=== PATIENT | female | born 1950 | race African-American/Black ===

== ENCOUNTER 2018-03-28 09:08 | Outpatient (CLI) | payer MEDICARE, MEDICAID | END 2018-03-28 09:09 | disposition home or self-care (01) | LOC: BICMAMMO 09:08 | PROVIDERS: ATTEND Nurse Practitioner Family | DX: Z78.0 Asymptomatic menopausal state (principal) | CPT/HCPCS: 77080 ==

== ENCOUNTER 2018-07-16 08:51 | Outpatient (CLI) | payer MEDICARE, MEDICAID ==
--- NOTE | 2018-07-16 11:10 | CT ---
CT OF THE ABDOMEN AND PELVIS WITH IV CONTRAST: DATE: 07/16/18. PROVIDED CLINICAL HISTORY: Abdominal pain. FINDINGS: Comparison is made with the examination performed 05/28/15. Large hiatal hernia is redemonstrated, inc ompletely visualized. The visualized lung bases are free of significant opacity. The liver, spleen, pancreas, and kidneys demonstrate an unremarkable CT appearance. There is a stabl e approximately 2.6 cm right adrenal mass presumably reflecting a lipid-poor adenoma. The left adren al gland appears normal. There is no bowel dilatation, inflammatory fat stranding, free fluid, or lymph node enlargement appar ent. Vascular calcifications are seen. The osseous structures demonstrate no concerning osteoblastic or osteolytic lesions. Lower lumbar sp ine degenerative changes are again noted. IMPRESSION: 1. Large hiatal hernia. 2. Other chronic findings as above. POS: [facility]
[2018-07-16] MEDS ORDERED: ISOVUE-370 76%-LOCM 1 ML ONE (14:04)
== END 2018-07-16 08:52 | disposition home or self-care (01) ==
LOC: BICCT 08:51
PROVIDERS: ATTEND Nurse Practitioner Family
DX: K44.9 Diaphragmatic hernia without obstruction or gangrene (principal); K58.9 Irritable bowel syndrome, unspecified; K31.84 Gastroparesis; M47.896 Other spondylosis, lumbar region; I70.0 Atherosclerosis of aorta
CPT/HCPCS: 74177

== ENCOUNTER 2018-08-07 12:40 | Outpatient (CLI) | payer MEDICARE, MEDICAID | END 2018-08-07 12:41 | disposition home or self-care (01) | LOC: BICMAMMO 12:40 | PROVIDERS: ATTEND Nurse Practitioner Family | DX: Z12.31 Encounter for screening mammogram for malignant neoplasm of breast (principal) | CPT/HCPCS: 77063; 77067 ==

== ENCOUNTER 2019-04-24 08:07 | Outpatient (CLI) | payer MEDICARE, MEDICAID ==
--- NOTE | 2019-04-24 10:16 | RAD ---
Barium swallow/esophagus: HISTORY: GERD without esophagitis, dysphasia FINDINGS: Normal swallowing function. Small thin incomplete mucosal web at the level of the cervical esophagus without evidence for obstruction or reduction in the flow of contrast. Patient swallowed barium tablet which passed into the stomach without difficulty. There is a large sliding-type hiatal hernia. One episode of minimal gastroesophageal reflux demonstra rojas. IMPRESSION: Large sliding-type hiatal hernia. One episode of mild gastroesophageal reflux.
== END 2019-04-24 08:08 | disposition home or self-care (01) ==
LOC: RAD 08:07
PROVIDERS: ATTEND Physician Assistant Medical
DX: K21.9 Gastro-esophageal reflux disease without esophagitis (principal); R13.10 Dysphagia, unspecified; K44.9 Diaphragmatic hernia without obstruction or gangrene
CPT/HCPCS: 74220

== ENCOUNTER → 2019-05-26 | Day surgery (SDC) | payer MEDICARE, MEDICAID | LOC: ENDO/OP 07:35 | PROVIDERS: ATTEND Internal Medicine Gastroenterology | DX: R13.10 Dysphagia, unspecified (principal); R63.4 Abnormal weight loss; Z79.84 Long term (current) use of oral hypoglycemic drugs; Z79.899 Other long term (current) drug therapy; Z88.8 Allergy status to other drugs, medicaments and biological substances | CPT/HCPCS: 91010 ==

== ENCOUNTER 2019-07-23 07:00 | Outpatient (CLI) | payer MEDICARE, MEDICAID ==
--- NOTE | 2019-07-23 13:19 | NM ---
EXAM: NM Gastric Empty Scan W/Meal PROVIDED CLINICAL HISTORY: Gastroparesis. COMPARISON: 07/14/2015. FINDINGS: Sequential left anterior oblique images of the abdomen are obtained. Emptying at 30 minutes is 74.2%. Emptying at 1 hour is 77.2%. Emptying at 2 hours is 78.6%. Emptying at 3 hours is 87.3% Emptying at 4 hours is 90.6%. IMPRESSION: Normal gastric emptying. There was evidence of delayed gastric emptying on prior exam.
== END 2019-07-23 07:01 | disposition home or self-care (01) ==
LOC: NM 07:00
PROVIDERS: ATTEND Internal Medicine Gastroenterology
DX: K31.84 Gastroparesis (principal); K21.9 Gastro-esophageal reflux disease without esophagitis; R93.3 Abnormal findings on diagnostic imaging of other parts of digestive tract
CPT/HCPCS: 78264; A9541

== ENCOUNTER 2019-08-20 15:33 | Emergency (ER) | payer MEDICARE, MEDICAID | END 2019-08-20 16:22 | disposition home or self-care (01) | LOC: ERS 15:33 | DX: E11.65 Type 2 diabetes mellitus with hyperglycemia (principal); E03.9 Hypothyroidism, unspecified; E78.5 Hyperlipidemia, unspecified; E78.00 Pure hypercholesterolemia, unspecified; I10 Essential (primary) hypertension; Z79.84 Long term (current) use of oral hypoglycemic drugs; Z79.899 Other long term (current) drug therapy | CPT/HCPCS: 36416; 99284 ==

== ENCOUNTER 2019-08-21 14:48 | Outpatient (CLI) | payer MEDICARE, OTHER ==
--- NOTE | 2019-08-21 15:49 | MMO ---
Bilateral MAMMO Bilat Screen [facility]. CLINICAL HISTORY: Patient is 69 years old and is seen for screening. The patient has no family history of breast cancer. The patient has no personal history of cancer. VIEWS: The views performed were: bilateral craniocaudal with tomosynthesis and bilateral mediolateral oblique with tomosynthesis. FILMS COMPARED: The present examination has been compared to prior imaging studies performed at [facility] on 07/26/2015, 07/30/2016, 08/06/2017 and 08/07/2018. This study has been interpreted with the assistance of computer-aided detection. MAMMOGRAM FINDINGS: There are scattered fibroglandular densities. Benign calcifications are noted bilaterally. There are no suspicious masses, suspicious calcifications, or new areas of architectural distortion. IMPRESSION: THERE IS NO MAMMOGRAPHIC EVIDENCE OF MALIGNANCY. A ROUTINE FOLLOW-UP MAMMOGRAM IN 1 YEAR IS RECOMMENDED. THE RESULTS OF THIS EXAM WERE SENT TO THE PATIENT. ACR BI-RADS Category 2 - Benign finding MAMMOGRAPHY NOTE: 1. A negative mammogram report should not delay a biopsy if a dominant of clinically suspicious mass is present. 2. Approximately 10% to 15% of breast cancers are not detected by mammography. 3. Adenosis and dense breasts may obscure an underlying neoplasm. Reported by: DEYANIRA PONCE MD Electonically Signed: [id number]
== END 2019-08-21 14:49 | disposition home or self-care (01) ==
LOC: BICMAMMO 14:48
PROVIDERS: ATTEND Nurse Practitioner Family
DX: Z12.31 Encounter for screening mammogram for malignant neoplasm of breast (principal)
CPT/HCPCS: 77063; 77067

== ENCOUNTER 2020-08-24 14:43 | Outpatient (CLI) | payer MEDICARE, OTHER ==
--- NOTE | 2020-08-24 15:54 | MMO ---
Bilateral MAMMO Bilat Screen [facility]. CLINICAL HISTORY: Patient is 70 years old and is seen for screening. The patient has no family history of breast cancer. The patient has no personal history of cancer. VIEWS: The views performed were: bilateral craniocaudal with tomosynthesis and bilateral mediolateral oblique with tomosynthesis. FILMS COMPARED: The present examination has been compared to prior imaging studies performed at [facility] on 07/30/2016, 08/06/2017, 08/07/2018 and 08/21/2019. This study has been interpreted with the assistance of computer-aided detection. MAMMOGRAM FINDINGS: There are scattered fibroglandular densities. There are vascular calcifications seen in both breasts. There are no suspicious masses, suspicious calcifications, or new areas of architectural distortion. IMPRESSION: A ROUTINE FOLLOW-UP MAMMOGRAM IN 1 YEAR IS RECOMMENDED. THE RESULTS OF THIS EXAM WERE SENT TO THE PATIENT. ACR BI-RADS Category 2 - Benign finding MAMMOGRAPHY NOTE: 1. A negative mammogram report should not delay a biopsy if a dominant of clinically suspicious mass is present. 2. Approximately 10% to 15% of breast cancers are not detected by mammography. 3. Adenosis and dense breasts may obscure an underlying neoplasm. Reported by: NATHALIE MORGAN MD Electonically Signed: [id number]
== END 2020-08-24 14:44 | disposition home or self-care (01) ==
LOC: BICMAMMO 14:43
PROVIDERS: ATTEND Nurse Practitioner Family
DX: Z12.31 Encounter for screening mammogram for malignant neoplasm of breast (principal)
CPT/HCPCS: 77063; 77067

== ENCOUNTER 2020-10-10 16:17 | Emergency (ER) | payer MEDICARE, OTHER ==
[2020-10-10 17:18] LABS: #Lymphocytes 1.3 thou/uL (1.20-3.40); #Monocytes 0.4 thou/uL (0.11-0.59); #Neutrophils 4.4 thou/uL (1.40-6.50); %Eosinophils 0.2 % (0.0-10.0); %Lymphocytes 21.4 % (21.0-51.0); %Monocytes 6.7 % (0.0-10.0); %Neutrophils 71.6 % (42.0-75.0); Mean Corpuscular HGB CONC 32.7 g/dL (32.0-36.0); Mean Corpuscular Hemoglobin 27.3 pg (27.0-31.0); Mean Corpuscular Volume 83.7 fL (78.0-98.0); Mean Platelet Volume 6.3 fL (7.4-10.4); Platelet Count 453 thou/uL (130-400); RBC Distribution Width 11.8 % (11.5-14.5); Red Blood Cell (RBC) Count 4.38 mill/uL (4.20-5.40); White Blood Cell (WBC) Count 6.2 thou/uL (4.8-10.8)
[2020-10-10 17:39] LABS: ALT (SGPT) 23 U/L (8-55); AST (SGOT) 33 U/L (5-34); Albumin 4.1 g/dL (3.4-4.8); Alkaline Phosphatase 115 U/L (40-110); Anion Gap 19 mmol/L (10-20); BUN (Urea Nitrogen) 23 mg/dL (9.8-20.1); Bilirubin, Total 0.7 mg/dL (0.2-1.2); Calc. Creatinine Clearance 0 mL/min (70-130); Carbon Dioxide 25 mmol/L (23-31); Chloride 97 mmol/L (98-107); Globulin 4.7 g/dL (2.4-3.5); Glucose 97 mg/dL (83-110); Magnesium 1.8 mg/dL (1.6-2.6); Protein, Total 8.8 g/dL (6.0-8.3); Sodium 137 mmol/L (136-145)
--- NOTE | 2020-10-10 17:47 | RAD ---
EXAM: Single view of the chest HISTORY: Chest pain COMPARISON: 09/25/2014 FINDINGS: Single view of the chest shows a normal sized cardiomediastinal silhouette. There is stabl e volume loss in the right thorax. Increased interstitial lung markings are present. There is no evidence of consolidation, mass, or pleural effusion. No acute osseous abnormality. IMPRESSION: No evidence of acute cardiopulmonary disease
== END 2020-10-10 19:56 | disposition home or self-care (01) ==
LOC: ERS 16:17
DX: U07.1 COVID-19 (principal); E86.0 Dehydration; E03.9 Hypothyroidism, unspecified; E78.5 Hyperlipidemia, unspecified; E11.9 Type 2 diabetes mellitus without complications; E78.00 Pure hypercholesterolemia, unspecified; I10 Essential (primary) hypertension; Z79.899 Other long term (current) drug therapy; Z79.84 Long term (current) use of oral hypoglycemic drugs
CPT/HCPCS: 71045; 80053; 83735; 85025; 93005

== ENCOUNTER 2021-01-12 12:50 | Outpatient (CLI) | payer MEDICARE, MEDICAID | END 2021-01-12 12:51 | disposition home or self-care (01) | LOC: BICMRI 12:50 | PROVIDERS: ATTEND Nurse Practitioner Family | DX: R51.9 Headache, unspecified (principal); I67.82 Cerebral ischemia | CPT/HCPCS: 70551 ==

== ENCOUNTER 2021-03-02 11:41 | Outpatient (CLI) | payer MEDICARE, OTHER | END 2021-03-02 11:42 | disposition home or self-care (01) | LOC: BICCT 11:41 | PROVIDERS: ATTEND Nurse Practitioner Family | DX: E06.3 Autoimmune thyroiditis (principal); I10 Essential (primary) hypertension; R51.9 Headache, unspecified; E03.9 Hypothyroidism, unspecified; E11.65 Type 2 diabetes mellitus with hyperglycemia; E55.9 Vitamin D deficiency, unspecified; E78.2 Mixed hyperlipidemia; F79 Unspecified intellectual disabilities; F34.1 Dysthymic disorder; G47.00 Insomnia, unspecified; I70.0 Atherosclerosis of aorta; I25.10 Atherosclerotic heart disease of native coronary artery without angina pectoris; R22.2 Localized swelling, mass and lump, trunk; Z55.9 Problems related to education and literacy, unspecified; M85.88 Other specified disorders of bone density and structure, other site | CPT/HCPCS: 72192 ==

== ENCOUNTER 2021-03-30 08:38 | Outpatient (CLI) | payer MEDICARE, OTHER | END 2021-03-30 08:39 | disposition home or self-care (01) | LOC: BICULT 08:38 | PROVIDERS: ATTEND Specialist | DX: K44.9 Diaphragmatic hernia without obstruction or gangrene (principal); K76.0 Fatty (change of) liver, not elsewhere classified | CPT/HCPCS: 76705 ==

== ENCOUNTER → 2021-03-30 | Day surgery (SDC) | payer MEDICARE, MEDICAID | LOC: ENDO/OP 09:21 | PROVIDERS: ATTEND Internal Medicine Gastroenterology | DX: K44.9 Diaphragmatic hernia without obstruction or gangrene (principal); K21.9 Gastro-esophageal reflux disease without esophagitis; I25.10 Atherosclerotic heart disease of native coronary artery without angina pectoris; E11.43 Type 2 diabetes mellitus with diabetic autonomic (poly)neuropathy; K31.84 Gastroparesis; E78.00 Pure hypercholesterolemia, unspecified; I10 Essential (primary) hypertension; E07.9 Disorder of thyroid, unspecified; Z79.84 Long term (current) use of oral hypoglycemic drugs; Z79.899 Other long term (current) drug therapy; Z88.6 Allergy status to analgesic agent | CPT/HCPCS: 76705; 91010 ==

== ENCOUNTER 2021-04-12 10:57 | Outpatient (CLI) | payer MEDICARE, MEDICAID ==
[2021-04-12 11:52] LABS: Anion Gap 14 mmol/L (10-20); BUN (Urea Nitrogen) 10 mg/dL (9.8-20.1); Calc. Creatinine Clearance 0 mL/min (70-130); Calcium 10.1 mg/dL (7.8-10.44); Carbon Dioxide 28 mmol/L (23-31); Chloride 105 mmol/L (98-107); Glucose 138 mg/dL (83-110); Potassium 4.6 mmol/L (3.5-5.1); Sodium 142 mmol/L (136-145)
[2021-04-12 11:58] LABS: #Basophils 0.1 10x3/uL (0.0-0.2); #Eosinphils 0.2 10x3/uL (0.0-0.5); #Monocytes 0.5 10x3/uL (0.0-1.1); #Neutrophils 2.4 10x3/uL (1.5-8.4); %Basophils 0.9 % (0.0-2.0); %Eosinophils 2.8 % (0.0-6.0); %Lymphocytes 41.7 % (18.0-47.0); %Monocytes 8.9 % (0.0-10.0); %Neutrophils 45.5 % (40.0-75.0); Hemoglobin 11.7 g/dL (12.0-15.5); Mean Corpuscular HGB CONC 30.8 g/dL (32.0-36.0); Mean Corpuscular Hemoglobin 26.7 pg (27.0-33.0); Mean Corpuscular Volume 86.8 fl (81.6-98.3); Mean Platelet Volume 9.3 fl (7.4-10.4); Platelet Count 364 10x3/uL (150-450); RBC Distribution Width 12.8 % (11.5-14.5); Red Blood Cell (RBC) Count 4.38 10x6/uL (3.90-5.03); White Blood Cell (WBC) Count 5.3 10x3/uL (3.5-10.5)
== END 2021-04-12 10:58 | disposition home or self-care (01) ==
LOC: LABBT 10:57
PROVIDERS: ATTEND Specialist
DX: Z01.818 Encounter for other preprocedural examination (principal); K44.9 Diaphragmatic hernia without obstruction or gangrene
CPT/HCPCS: 80048; 85025; 93005; 93010

== ENCOUNTER 2021-05-17 14:29 | Observation (INO) | payer MEDICARE, OTHER ==
[~2021-05-17 14:29] MED LIST: Iopamidol 370 76% 100 ML VIAL ONE
[2021-05-17 15:13] LABS: #Basophils 0.1 thou/uL (0.0-0.2); #Eosinphils 0.4 thou/uL (0.0-0.7); #Lymphocytes 2.5 thou/uL (1.20-3.40); #Monocytes 0.4 thou/uL (0.11-0.59); #Neutrophils 2.8 thou/uL (1.40-6.50); %Basophils 1.2 % (0.0-1.0); %Lymphocytes 40.4 % (21.0-51.0); %Monocytes 6.3 % (0.0-10.0); %Neutrophils 46.2 % (42.0-75.0); Hemoglobin 11.9 g/dL (12.0-16.0); Mean Corpuscular HGB CONC 31.9 g/dL (32.0-36.0); Mean Corpuscular Hemoglobin 27.6 pg (27.0-31.0); Mean Corpuscular Volume 86.7 fL (78.0-98.0); Platelet Count 334 thou/uL (130-400); RBC Distribution Width 11.8 % (11.5-14.5); White Blood Cell (WBC) Count 6.1 thou/uL (4.8-10.8)
[2021-05-17 15:35] LABS: ALT (SGPT) 11 U/L (8-55); AST (SGOT) 16 U/L (5-34); Albumin 4.1 g/dL (3.4-4.8); Alkaline Phosphatase 97 U/L (40-110); Anion Gap 11 mmol/L (10-20); BUN (Urea Nitrogen) 14 mg/dL (9.8-20.1); Bilirubin, Total 0.6 mg/dL (0.2-1.2); Calc. Creatinine Clearance 0 mL/min (70-130); Calcium 10.1 mg/dL (7.8-10.44); Carbon Dioxide 28 mmol/L (23-31); Chloride 107 mmol/L (98-107); Globulin 3.5 g/dL (2.4-3.5); Glucose 115 mg/dL (83-110); Potassium 4.4 mmol/L (3.5-5.1); Protein, Total 7.6 g/dL (5.8-8.1); Sodium 142 mmol/L (136-145)
[2021-05-17] MEDS ORDERED: Nitroglycerin 2% Ointment 1 INCH/1 GM Packet ONE (17:41)
[2021-05-17] MEDS ORDERED: Morphine 4 MG/ML VIAL SLOW IVP PRN (18:03)
[2021-05-17] MEDS ORDERED: HumaLOG 300 UNITS/3 ML VIAL SC PRN ×2 (18:04)
[2021-05-17] MEDS ORDERED: Dextrose 5% in Water 1,000 ML IV PRN (18:04)
[2021-05-17] MEDS ORDERED: Dextrose 50% Abboject 50 ML SYRINGE SLOW IVP PRN (18:04)
[2021-05-17] MEDS ORDERED: hydrALAZINE 20 MG/ML VIAL SLOW IVP PRN (18:06)
[2021-05-17 19:14] LABS: Troponin I Less than 0.010 ng/mL (< 0.028)
[2021-05-17] MEDS ORDERED: Aspirin 325 MG TAB PO SCH (21:00)
[2021-05-17 21:20] VITALS: BMI 23.6
[2021-05-17] MEDS: Metoprolol Tartrate 25 MG TAB PO SCH (21:37)
[2021-05-17] MEDS: Atorvastatin Calcium 20 MG TAB PO SCH (21:37)
[2021-05-17] MEDS: Nitroglycerin 2% Ointment 1 INCH/1 GM Packet TOP SCH (21:38)
[2021-05-17 22:05] LABS: Troponin I Less than 0.010 ng/mL (< 0.028)
[2021-05-17] MEDS ORDERED: Acetaminophen 325 MG TAB PO PRN (22:35)
[2021-05-18] MEDS: Nitroglycerin 2% Ointment 1 INCH/1 GM Packet TOP SCH ×2 (05:56→12:18)
[2021-05-18 06:13] LABS: Cardiac Risk 2.6 (Less than 4.5)
[2021-05-18] MEDS: Aspirin Chewable 81 MG TAB PO SCH (09:18)
[2021-05-18] MEDS: Enoxaparin Sodium 40 MG/0.4 ML SYRINGE SC SCH (09:18)
[2021-05-18] MEDS: Metoprolol Tartrate 25 MG TAB PO SCH ×2 (09:20→20:08)
[2021-05-18 11:28] LABS: Free T4 (Free Thyroxine) 0.94 ng/dL (0.70-1.48)
[2021-05-18] MEDS: Atorvastatin Calcium 20 MG TAB PO SCH (20:08)
[2021-05-18] MEDS ORDERED: Senokot S 8.6-50 MG TAB PO PRN (20:15)
[2021-05-18] MEDS ORDERED: Bisacodyl 5 MG TAB PO PRN (20:15)
[2021-05-19] MEDS: Nitroglycerin 2% Ointment 1 INCH/1 GM Packet TOP SCH ×3 (01:03→13:20)
[2021-05-19] MEDS ORDERED: ADENOSINE 60 MG/20 ML VIAL ONE (09:36)
[2021-05-19] MEDS: Enoxaparin Sodium 40 MG/0.4 ML SYRINGE SC SCH (10:44)
[2021-05-19] MEDS: Aspirin Chewable 81 MG TAB PO SCH (10:44)
[2021-05-19] MEDS: Metoprolol Tartrate 25 MG TAB PO SCH (10:44)
[2021-05-19 12:17] VITALS: BP 190/87; TEMP 98.2
== END 2021-05-19 14:56 | disposition home or self-care (01) ==
LOC: ERS 14:29 → SUATTDRO 14:29 → 2SW 17:44
PROVIDERS: ADMIT Family Medicine; ATTEND Internal Medicine
DX: R07.9 Chest pain, unspecified (principal); I16.0 Hypertensive urgency; I10 Essential (primary) hypertension; I25.10 Atherosclerotic heart disease of native coronary artery without angina pectoris; I08.2 Rheumatic disorders of both aortic and tricuspid valves; E78.5 Hyperlipidemia, unspecified; E11.9 Type 2 diabetes mellitus without complications; K22.8 Other specified diseases of esophagus; K21.00 Gastro-esophageal reflux disease with esophagitis, without bleeding; E03.9 Hypothyroidism, unspecified; M19.90 Unspecified osteoarthritis, unspecified site; R20.2 Paresthesia of skin; E05.80 Other thyrotoxicosis without thyrotoxic crisis or storm; T50.905A Adverse effect of unspecified drugs, medicaments and biological substances, initial encounter; E78.00 Pure hypercholesterolemia, unspecified; Z88.6 Allergy status to analgesic agent; Z79.84 Long term (current) use of oral hypoglycemic drugs; Z79.82 Long term (current) use of aspirin; Z79.899 Other long term (current) drug therapy; Z95.5 Presence of coronary angioplasty implant and graft; Z87.09 Personal history of other diseases of the respiratory system
CPT/HCPCS: 71046; 71275; 74174; 78452; 80061; 82962 ×3; 83690; 84439; 84481; 84484 ×2; 93005; 93017; 93306; 94760; 99285; A9500; 36415; 36416; 80053; 84443; 85025; 96372; 96374; G0378; J0153; J0360; J1650; J1815; Q9967

== ENCOUNTER 2021-09-25 11:43 | Outpatient (CLI) | payer MEDICARE, OTHER | END 2021-09-25 11:44 | disposition home or self-care (01) | LOC: BICMAMMO 11:43 | PROVIDERS: ATTEND Nurse Practitioner Family | DX: Z12.31 Encounter for screening mammogram for malignant neoplasm of breast (principal) | CPT/HCPCS: 77063; 77067 ==

== ENCOUNTER 2021-09-26 09:03 | Outpatient (CLI) | payer MEDICARE, OTHER | END 2021-09-26 09:04 | disposition home or self-care (01) | LOC: RAD-FRANK 09:03 | PROVIDERS: ATTEND Nurse Practitioner Family | DX: M25.551 Pain in right hip (principal) ==

== ENCOUNTER 2022-04-17 08:23 | Outpatient (CLI) | payer MEDICARE, OTHER | END 2022-04-17 08:24 | disposition home or self-care (01) | LOC: NM 08:23 | PROVIDERS: ATTEND Internal Medicine Gastroenterology | DX: R11.2 Nausea with vomiting, unspecified (principal); E11.9 Type 2 diabetes mellitus without complications | CPT/HCPCS: 78264; A9541 ==

== ENCOUNTER 2023-10-18 13:38 | Outpatient (CLI) | payer OTHER | END 2023-10-18 13:39 | disposition home or self-care (01) | LOC: BICMAMMO 13:38 | PROVIDERS: ATTEND Nurse Practitioner Family | DX: Z12.31 Encounter for screening mammogram for malignant neoplasm of breast (principal) | CPT/HCPCS: 77063; 77067 ==